=== PATIENT | female | born 1995 | race Caucasian/White ===

== ENCOUNTER 2022-03-23 11:24 | Outpatient (CLI) | payer OTHER, SELFPAY ==
[2022-03-23 14:33] LABS: Albumin* 4.5 g/dL (3.3-5.0); Chloride* 101 mmol/L (96-114); Sodium* 138 mmol/L (135-149)
[2022-03-23 14:35] LABS: Cholesterol* 170 mg/dL (90-199)
[2022-03-23 14:36] LABS: Alkaline Phosphatase* 86 U/L (40-150); Aspartate Amino Transferase* 22 U/L (12-35); Bilirubin Total* 0.6 mg/dL (0.1-1.5); Blood Urea Nitrogen* 9 mg/dL (5-24); Calcium* 9.5 mg/dL (8.4-10.6); Carbon Dioxide* 30 mmol/L (20-32); Creatinine* 0.6 mg/dL (0.5-1.5); Estimated Glomerular Filt Rate 127 ml/min; Glucose* 90 mg/dL (60-115); Total Protein* 7.5 g/dL (6.0-8.3); Triglycerides* 105 mg/dL (40-149)
[2022-03-23 14:37] LABS: Alanine Aminotransferase* 15 U/L (4-35); HDL Cholesterol* 66 mg/dL (>=50); LDL Cholesterol Calculated 83 mg/dL (<100)
== END 2022-03-23 11:25 | disposition home or self-care (01) ==
PROVIDERS: Visit Provider Family Medicine
DX: Z01.419 Encounter for gynecological examination (general) (routine) without abnormal findings (principal); R53.83 Other fatigue; R00.2 Palpitations; Z13.6 Encounter for screening for cardiovascular disorders
CPT/HCPCS: 80053; 80061; 84443

== ENCOUNTER 2022-08-19 08:35 | Outpatient (CLI) | payer OTHER, SELFPAY ==
[2022-08-19 12:45] LABS: Albumin* 4.4 g/dL (3.3-5.0)
[2022-08-19 12:46] LABS: Chloride* 106 mmol/L (96-114); Sodium* 140 mmol/L (135-149)
[2022-08-19 12:48] LABS: Aspartate Amino Transferase* 20 U/L (12-35); Bilirubin Total* 0.7 mg/dL (0.1-1.5); Carbon Dioxide* 28 mmol/L (20-32); Cholesterol* 157 mg/dL (90-199); Creatinine* 0.6 mg/dL (0.5-1.5); Estimated Glomerular Filt Rate 127 ml/min; Total Protein* 7.4 g/dL (6.0-8.3)
[2022-08-19 12:49] LABS: Alanine Aminotransferase* 15 U/L (4-35); Alkaline Phosphatase* 64 U/L (40-150); Blood Urea Nitrogen* 12 mg/dL (5-24); Calcium* 9.2 mg/dL (8.4-10.6); Glucose* 87 mg/dL (60-115); HDL Cholesterol* 70 mg/dL (>=50); LDL Cholesterol Calculated 71 mg/dL (<100); Potassium* 4.1 mmol/L (3.6-5.1); Triglycerides* 80 mg/dL (40-149)
== END 2022-08-19 08:36 | disposition home or self-care (01) ==
LOC: NFLDREF 08:36
PROVIDERS: PCP Family Medicine; Visit Provider Family Medicine
DX: Z01.419 Encounter for gynecological examination (general) (routine) without abnormal findings (principal); Z13.6 Encounter for screening for cardiovascular disorders
CPT/HCPCS: 80053; 80061

== ENCOUNTER 2022-09-28 11:30 | Outpatient (RCR) | payer OTHER, SELFPAY | END 2023-02-10 23:59 | disposition home or self-care (01) | PROVIDERS: PCP Family Medicine; Visit Provider Family Medicine | DX: M77.8 Other enthesopathies, not elsewhere classified (principal); Z51.89 Encounter for other specified aftercare | CPT/HCPCS: 97033; 97035; 97110; 97140; X5282 ==